=== PATIENT | female | born 1970 | race Two or more races ===

== ENCOUNTER 2017-02-20 09:46 | Inpatient (IN) | payer BC ==
--- NOTE | ~2017-02-20 | CT2 ---
[facility] A Service of [facility] RADIOLOGY TEXT RESULTS PATIENT: AKOSUA PATIÑO LOCATION: [place] [address] : [birth year] UNIT #: [id number] AGE: [address]: Stefan Whelan MD SEX: F ORDER DR: [id number] [place] [id number] [facility]. [place], [place] [address] [id number] I MR#: [id number] Acc #: [id number] NAME: AKOSUA PATIÑO : 1970 SEX: F STUDY DATE/TIME: 02/20/2017 14:06 UNIT: [facility] ROOM: [facility] STUDY DESCRIPTION: CT Abd and Pelv W Cont Attending Physician: Sidra Vang M.D. Ordering Physician: Nate Pete D.O. Primary Care Physician: Darrel Bello M.D. MEDICAL IMAGING REPORT This report is preliminary unless electronic signature is present EXAM CT abdomen and pelvis with contrast INDICATION Right upper quadrant pain for [address] of the abdomen and pelvis was performed following administration of IV contrast. Coronal and sagittal reformatted images are obtained. This CT exam was performed with one or more of the following radiation dose reduction techniques: automatic exposure control, adjustment of mA and/or kV according to patient size, and iterative reconstruction. No comparisons. FINDINGS Please refer to separately dictated chest CT for findings above the diaphragm. The liver, gallbladder and spleen are unremarkable. The kidneys are unremarkable. The adrenal glands are unremarkable. The pancreas is unremarkable. PELVIS: Hysterectomy. Urinary bladder is unremarkable. Colon is unremarkable. The appendix is normal. The bone windows are unremarkable. IMPRESSION No acute findings. No CT findings to explain the patient's symptoms. Dictated by... Albert Bravo M.D. [facility] A Service [facility] RADIOLOGY TEXT RESULTS PATIENT: AKOSUA PATIÑO LOCATION: [place] [address] : [birth year] UNIT #: [id number] AGE: [address]: Stefan Whelan MD SEX: F ORDER DR: THIS IS AN ELECTRONICALLY VERIFIED REPORT Albert Bravo M.D. at 02/21/2017 7:29 AM YISEL/ewelina TD: 02/21/2017 04:39 JOB #: [id number] MEDICAL IMAGING REPORT Page 1 of 1 COPY
--- NOTE | ~2017-02-20 | NM22 ---
[facility] A Service of [facility] RADIOLOGY TEXT RESULTS PATIENT: AKOSUA PATIÑO LOCATION: [place] [address] : [birth year] UNIT #: [id number] AGE: [address]: Stefan Whelan MD SEX: F ORDER DR: [id number] [place] [id number] [place], [place] [address] [id number] I MR#: [id number] Acc #: [id number] NAME: AKOSUA PATIÑO : 1970 SEX: F STUDY DATE/TIME: 02/21/2017 9:27 UNIT: [facility] ROOM: [facility] STUDY DESCRIPTION: NM Hepatobiliary W GB Pharm Attending Physician: Stefan Whelan M.D. Ordering Physician: Joby Chang M.D. Primary Care Physician: Darrel Bello M.D. MEDICAL IMAGING REPORT This report is preliminary unless electronic signature is present EXAM Hepatobiliary scan with Kinevac, 02/21/2017. CLINICAL HISTORY Right upper quadrant tenderness. Abnormal ultrasound demonstrating cholelithiasis. PROCEDURE Study performed with 5.39 mCi technetium 99m Choletec followed by 1.6 mcg Kinevac IV. FINDINGS There is prompt uptake of radiotracer by the liver, clearance from the blood pool excretion in the biliary tree and filling of the gallbladder. Following Kinevac administration, calculated gallbladder ejection fraction is 84%. IMPRESSION Normal HIDA scan and normal ejection fraction of 84%. Dictated by... Kumar Bauer M.D. THIS IS AN ELECTRONICALLY VERIFIED REPORT Kumar Bauer M.D. at 02/22/2017 10:26 AM TEV/arelisw TD: 02/21/2017 18:16 JOB #: [id number] [facility] A Service [facility][1] RADIOLOGY TEXT RESULTS PATIENT: AKOSUA PATIÑO LOCATION: [place] [address] : [birth year] UNIT #: [id number] AGE: [address]: Stefan Whelan MD SEX: F ORDER DR: MEDICAL IMAGING REPORT Page 1 of 1 COPY
--- NOTE | ~2017-02-20 | EKG ---
PATIENT: AKOSUA PATIÑO UNIT #: [id number] Ventricular Rate: 73 BPM Atrial Rate: 73 BPM P-R Interval: 126 ms QRS Duration: 86 ms Q-T Interval: 408 ms QTC Calculation(Bezet): 449 ms P Bomont: 55 degrees Calculated R Bomont: 43 degrees Calculated T Bomont: 37 degrees Diagnosis Line: Normal sinus rhythm with sinus arrhythmia Diagnosis Line: Normal ECG Diagnosis Line: No previous ECGs available Diagnosis Line: Confirmed by IKE RUELAS MD ([id number]) on Diagnosis Line: 02/21/2017 11:09:29 AM INTERPRETING MD: SURAJ FLORES
--- NOTE | ~2017-02-20 | CT16 ---
[facility] A Service of [facility] RADIOLOGY TEXT RESULTS PATIENT: AKOSUA PATIÑO LOCATION: [facility] [id number] : [birth year] UNIT #: [id number] AGE: [address]: Stefan Whelan MD SEX: F ORDER DR: [id number] [facility] [address] [facility]. [place], [place] [address] [id number] I MR#: [id number] Acc #: [id number] NAME: AKOSUA PATIÑO : 1970 SEX: F STUDY DATE/TIME: 02/20/2017 14:56 UNIT: [facility] ROOM: [facility] STUDY DESCRIPTION: CT Angio Chest for PE Attending Physician: Sidra Vang M.D. Ordering Physician: Nate Pete D.O. Primary Care Physician: Darrel Bello M.D. MEDICAL IMAGING REPORT This report is preliminary unless electronic signature is present EXAM CT chest with contrast PE protocol INDICATIONS Elevated D-dimer. Hypertension, smoking history, right upper quadrant pain and back pain for [address] scan of the chest was performed following the administration of IV contrast. Coronal and sagittal reformatted images were obtained. Pulmonary embolism protocol. No comparisons. This CT exam was performed with one or more of the following radiation dose reduction techniques: automatic exposure control, adjustment of mA and/or kV according to patient size, and iterative reconstruction. FINDINGS There is no evidence for pulmonary embolism. There is some hazy density in the anterior mediastinum. This is indeterminate and may represent some residual thymic tissue. No pleural effusion. There is some mild dependent atelectasis or scarring in the lungs. No airspace consolidation or suspicious pulmonary nodule. Please refer to separately dictated CT abdomen and pelvis for findings below the diaphragm. Bone windows show degenerative changes of the lower thoracic spine. IMPRESSION 1. No evidence of pulmonary embolism. 2. No acute findings in the chest. 3. There is some hazy density in the anterior mediastinum which is indeterminate and may represent some residual thymic tissue however, I would recommend a followup chest CT with contrast in 3-6 months to document stability of this finding, or this could be compared with STS. [facility] A Service of [facility] RADIOLOGY TEXT RESULTS PATIENT: AKOSUA PATIÑO LOCATION: [place] [address] : [birth year] UNIT #: [id number] AGE: [address]: Stefan Whelan MD SEX: F ORDER DR: any old chest CTs if available. Dictated by... Albert Bravo M.D. THIS IS AN ELECTRONICALLY VERIFIED REPORT Albert Bravo M.D. at 02/21/2017 7:30 AM YISEL/ewelina TD: 02/21/2017 05:19 JOB #: [id number] MEDICAL IMAGING REPORT Page 1 of 1 COPY
--- NOTE | ~2017-02-20 | DS ---
Unit #: [id number] #: [id number] Patient: AKOSUA PATIÑO [id number] [address] [address] [id number] I MR#: [id number] NAME: AKOSUA PATIÑO ROOM: [facility] Age: 46 Sex: F Admission Date: 02/20/2017 : 1970 Discharge Date: 02/23/2017 Attending Physician: Stefan Whelan M.D. Primary Care Physician: Darrel Bello M.D. DISCHARGE SUMMARY HISTORY AND HOSPITAL COURSE Ms. Patiño is a otherwise healthy 46-year-old [place] female who presented to the emergency room with nausea, vomiting and right upper quadrant pain. Evaluation revealed cholelithiasis. She was taken to the operating room by Dr. Ge, who did an uncomplicated laparoscopic cholecystectomy. Postoperatively she had no complications. She was hemodynamically stable, tolerating a regular diet and follow up labs were entirely within normal limits. DISCHARGE DISPOSITION/INSTRUCTIONS She will be discharged home today with instructions to undergo diet and activity as tolerated. She is to call [phone] for a follow up appointment in 7-10 days. She may shower and use a laxative as needed. Prescription for hydrocodone was left for postoperative pain control. The patient understood these instructions and will be discharged home in stable condition. Dictated by... Evaristo Plascencia M.D. RS/to TD: 02/23/2017 17:11 JOB #: [id number] DISCHARGE SUMMARY Page 1 of 1 X Evaristo Plascencia MD X DISCHARGE SUMMARY
--- NOTE | ~2017-02-20 | OR ---
Unit #: [id number] #: [id number] Patient: AKOSUA PATIÑO [id number] [address] [place], [place] [address] [id number] Nathanael MR#: [id number] NAME: AKOSUA PATIÑO ROOM: 467 Date of Procedure: 02/22/2017 Admission Date: 02/20/2017 Surgeon: Buster Ge III, M.D. : 1970 Attending Physician: Stefan Whelan M.D. Primary Care Physician: Darrel Bello M.D. OPERATIVE REPORT PREOPERATIVE DIAGNOSIS Symptomatic cholelithiasis. POSTOPERATIVE DIAGNOSIS Symptomatic cholelithiasis. PROCEDURE PERFORMED Laparoscopic cholecystectomy. IMPORT SPECIALIST Cosmo Sanders M.D. SPECIMENS Gallbladder to Pathology. COMPLICATIONS None apparent. ESTIMATED BLOOD LOSS Minimal. INDICATIONS FOR PROCEDURE This is a 46-year-old Jordanian lady who has gallstones and right upper quadrant pain. She is here today for laparoscopic cholecystectomy. DESCRIPTION OF PROCEDURE After consent was obtained, the patient was brought to the operating room and placed in the supine position. General anesthetic was administered and her abdomen was prepped and draped in standard surgical fashion. I made a 5-mm incision in the right upper quadrant. I used an Optiview to enter into the peritoneal cavity without any difficulty. CO2 pneumoperitoneum was then established. Next, a second 5-mm port was placed in the supraumbilical region and an 11-mm port was placed in the midepigastric region and a third 5-mm port was placed in the right lateral subcostal region. I began by retracting the gallbladder superiorly and laterally. She had few adhesions down to the neck of the gallbladder, which were easily taken down. I then dissected out the cystic duct and cystic artery and after these were carefully identified, I placed 2 clips proximally, one clip distally along both structures and then they were divided. The gallbladder was then taken down off the liver bed using the hook cautery. I extracted the gallbladder through the epigastric port site after dilating the fascia and enlarging the skin opening. I had Unit #: [id number] #: [id number] Patient: AKOSUA PATIÑO excellent hemostasis. All needle, sponge, and instrument counts were correct x2. I removed all the trocars and released the pneumoperitoneum. The incisions were all injected with 0.25% plain Marcaine. I did reapproximate the fascia at the epigastric port site with a neoClose device. I then reapproximated all the skin edges with interrupted 4-0 Vicryl subcuticular suture. Steri-Strips were then applied. The patient tolerated the procedure without any problems and returned to the recovery room in stable condition. Dictated by... Buster Ge III, M.D. VCL/davina TD: 02/23/2017 05:57 JOB #: [id number] CC: Darrel Bello M.D. OPERATIVE REPORT Page 1 of 1 X Buster Ge III, MD X PROCEDURE OPERATIVE NOTE
--- NOTE | ~2017-02-20 | CO ---
Unit #: [id number] #: [id number] Patient: AKOSUA PATIÑO [id number] [address] [address] [id number] I MR#: [id number] NAME: AKOSUA PATIÑO ROOM: 46 Age: 46 Sex: F Admission Date: 02/20/2017 : 1970 Attending Physician: Stefan Whelan M.D. Primary Care Physician: Darrel Bello M.D. Consultation Date: 02/21/2017 CONSULTATION REPORT HISTORY OF PRESENT ILLNESS Ms. Patiño is a 46-year-old female of [place] origin who is Hong Konger speaking and so the history and exam was done through the use of the manager electrical phone. She presented to the hospital with complaints of new onset right upper quadrant pain associated with nausea, but no vomiting. She has been taking significant amounts of Motrin recently due to headaches and body aches, but is not on any other medications. She denies any hematemesis or melena. CT scan of the abdomen and chest were generally unremarkable. Chest x-ray was unremarkable. HIDA scan has been ordered and is pending at this time. PAST MEDICAL HISTORY Total abdominal hysterectomy, x2, 5, para 5, hypertension, not currently on medications. Previous admission to [facility] due to depression and suicidal ideation. ALLERGIES No allergies to medication. MEDICATIONS Hvma-lut-jcnenec ibuprofen. FAMILY HISTORY She is unaware of any chronic or inheritable diseases. SOCIAL HISTORY She is a smoker, but denies use of alcohol or recreational drugs. 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 REVIEW OF SYSTEMS No fever, chills, or night sweats. No vomiting. No diarrhea. No weight loss. PHYSICAL EXAMINATION GENERAL: She is awake, alert, oriented, complains of right upper quadrant pain. VITAL SIGNS: Temperature is 98.1, pulse 80, respirations 18, blood pressure 121/77. HEENT: No scleral icterus. NECK: No carotid bruits. CARDIAC: Regular rhythm without murmur. LUNGS: Clear. ABDOMEN: Nondistended and soft. She guards in the right upper quadrant. There is no mass or rebound. Unit #: [id number] #: [id number] Patient: AKOSUA PATIÑO EXTREMITIES: No edema. NEUROLOGIC: Grossly intact. SKIN: No skin rashes. DIAGNOSTIC STUDIES LABORATORY RESULTS: Comprehensive metabolic panel is generally unremarkable. In particular liver chemistries are normal. Her troponin is slightly elevated at 0.05. TSH is normal at 4.23. D-dimer was 841. Hemoglobin 12.7, white count 12,100 with normal differential, platelets 215,000. Urinalysis is negative for infection. CARDIOVASCULAR STUDIES: EKG normal sinus rhythm with no ischemic changes. ASSESSMENT AND PLAN A 46-year-old female with right upper quadrant pain and nausea. HIDA scan is pending. I discussed with the patient the possibility that she could have acalculous cholecystitis and if she does then, she may need a laparoscopic cholecystectomy. However, we will also discuss that if her HIDA scan is normal that she should have upper endoscopy to rule out peptic ulcer disease or gastritis due to her use of nonsteroidal anti-inflammatory agents. The patient understands. We will await the results of her HIDA scan. Dictated by... Rupesh Ramsey/davina TD: 02/21/2017 08:28 JOB #: [id number] CONSULTATION REPORT Page 1 of 1 X Evaristo Plascencia MD CONSULTATION REPORT
--- NOTE | ~2017-02-20 | HP ---
Unit #: [id number] #: [id number] Patient: AKOSUA PATIÑO [id number] [address] [place], [place] [address] [id number] MR#: [id number] NAME: AKOSUA PATIÑO ROOM: Age: 46 Sex: F Admission Date: 02/20/2017 : 1970 Attending Physician: Nate Pete D.O. Primary Care Physician: Darrel Bello M.D. HISTORY AND PHYSICAL REASON FOR ADMISSION Abdominal pain. HISTORY OF PRESENT ILLNESS The patient is a 46-year-old Malaysian-speaking female originally from [place] who states that over the past 48-72 hours she has had fairly significant abdominal pain, as well as right upper quadrant discomfort. She associates some mild dyspepsia, as well as nausea, but no emesis episodes at home. She tells me that she has only been taking Motrin recently secondary to headaches, as well as body aches, but otherwise, she does not really take any home medications. She also denies any chest pain or difficulty with breathing. 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 She denies any recent sick contacts. No fevers, no chills, and no urinary or GI complaints with the exception of above. PAST MEDICAL HISTORY Hypertension. PAST SURGICAL HISTORY 1. Hysterectomy. 2. section. HOME MEDICATIONS Ibuprofen p.r.n. ALLERGIES No known drug allergies. SOCIAL HISTORY Positive tobacco use. Negative alcohol use. Patient denies illicit drug use. FAMILY HISTORY Reviewed and noncontributory or non-pertinent. REVIEW OF SYSTEMS Please see History of Present Illness. Twelve points otherwise negative except for those positive and noted in the History of Present Illness. PHYSICAL EXAMINATION VITAL SIGNS: Temperature 98.3, pulse 89, respiratory rate 16, and blood pressure 153/100. Unit #: [id number] #: [id number] Patient: AKOSUA PATIÑO GENERAL APPEARANCE: A 46-year-old female lying comfortably in no acute distress. HEAD: Atraumatic and normocephalic. EARS: Tympanic membranes do not reveal any erythema or injection. NECK: Supple. CARDIOVASCULAR: S1 and S2 without murmur. RESPIRATORY: Clear. GASTROINTESTINAL/ABDOMEN: Mild distention noted. Tender to palpation right upper quadrant. Wadsworth's sign positive. Tender to palpation epigastrium. LOWER EXTREMITIES: No evidence of any lower extremity edema and no calf tenderness. NEUROLOGIC: Alert and oriented x3. No evidence of any focal nerve deficits. PSYCHIATRIC: Patient demonstrates normal mood and affect and is cooperative throughout. ER COURSE The patient received morphine 4 mg IV x1 and Zofran 4 mg IV x1 and received a normal saline bolus. DIAGNOSTIC STUDIES INITIAL LABORATORY: Mildly elevated troponin of 0.05. Urinalysis negative. D-dimer elevated at 841. BMP unremarkable. Lipase unremarkable. Hepatic panel unremarkable. CBC shows a white count of 10.6 and hemoglobin 14.6. IMAGING: CTA chest, as well as CT abdomen and pelvis, currently pending at the time of this dictation. I do not have those results. INITIAL IMPRESSION 1. Abdominal pain. 2. Likely gastritis versus peptic ulcer disease. 3. Ongoing tobacco abuse. 4. History of hypertension. PLAN Admission to med/surg floor. Gastroenterology consultation. Ultrasound gallbladder. Symptom management, PPI therapy, Zofran, Ativan, and morphine p.r.n. Carafate suspension also to be initiated. Blood pressure control with Norvasc p.o. N.p.o. after midnight. Await CTA chest, as well as CT abdomen and pelvis results. Unlikely to be cardiac in etiology and troponin elevation seems nonspecific in origin. It seems more likely this is either gallbladder versus stomach/GI in origin. The plans have been reviewed with the patient via quiller tender in detail. She wishes to be a Full Code. She agrees to admission and plan as mentioned and stated above. Dictated by Rupesh Rawsl/brain TD: 02/20/2017 17:19 JOB #: [id number] Unit #: [id number] #: [id number] Patient: AKOSUA PATIÑO HISTORY AND PHYSICAL Page 1 of 1 X Sidra Vang MD HISTORY AND PHYSICAL
--- NOTE | ~2017-02-20 | CO ---
Unit #: [id number] #: [id number] Patient: AKOSUA PATIÑO [id number] [address] [address] [id number] I MR#: [id number] NAME: AKOSUA PATIÑO ROOM: 46 Age: 46 Sex: F Admission Date: 02/20/2017 : 1970 Attending Physician: Stefan Whelan M.D. Primary Care Physician: Darrel Bello M.D. Consultation Date: 02/20/2017 CONSULTATION REPORT PRIMARY CARE PHYSICIAN Darrel Bello M.D. REASON FOR CONSULTATION Right upper quadrant pain. HISTORY OF PRESENTING ILLNESS Ms. Patiño is a 46-year-old Gibraltarian-speaking female, presented with a 48 hour onset for cfmcxviy-bb-ajhspm right upper quadrant pain. She is significantly tender. She had significant nausea. No vomiting. She denies any fever. History is very sketchy because of the language issues. PAST MEDICAL HISTORY Significant for hypertension. She is status post hysterectomy and C-sections. MEDICATIONS At home, ibuprofen as needed. ALLERGIES None. SOCIAL HISTORY Nonsmoker. Nonalcoholic. No drug abuse. FAMILY HISTORY Noncontributory. REVIEW OF SYSTEMS A complete 10-point review of systems was done, which is unremarkable other than as mentioned above. PHYSICAL EXAMINATION VITAL SIGNS: Stable. Afebrile. GENERAL: No acute distress. HEENT: Pupils equal and reactive. Sclerae anicteric. Oral mucosa moist. NECK: No JVD. No lymphadenopathy. CHEST: Clear to auscultation bilaterally. CARDIOVASCULAR: Regular rate and rhythm. No murmurs. ABDOMEN: Significant tender. Positive Wadsworth's sign right upper quadrant. Minimal guarding. No rebound. EXTREMITIES: Without clubbing, cyanosis, or edema. NEUROLOGIC: Intact. SKIN: Warm and dry. Unit #: [id number] #: [id number] Patient: AKOSUA PATIÑO DIAGNOSTIC STUDIES IMAGING STUDIES: CT scan of abdomen and pelvis shows no acute disease. CT chest shows no evidence of any embolism. LABORATORY RESULTS: Elevated white count at 10,600. Hemoglobin normal. Chemistries are largely unremarkable. ASSESSMENT AND PLAN The patient's symptoms suggest possible acute cholecystitis. I will get a HIDA scan as well as an ultrasound for evaluation. If that is negative, we will consider upper endoscopy for further evaluation. In the meantime, we will keep her on Protonix and pain medications. I will cover her with broad-spectrum antibiotics also and have surgical consult. Thank you, Dr. Vang for this interesting consult. We will follow along. Dictated by... Rupesh Garber/davina TD: 02/20/2017 20:43 JOB #: [id number] CONSULTATION REPORT Page 1 of 1 X Joby Chang MD X CONSULTATION REPORT
--- NOTE | ~2017-02-20 | CR72 ---
[facility] A Service of [facility] RADIOLOGY TEXT RESULTS PATIENT: AKOSUA PATIÑO LOCATION: [place] [address]- : [birth year] UNIT #: [id number] AGE: [address]: Stefan Whelan MD SEX: F ORDER DR: [id number] [facility] [address] [facility] [place] [facility]. [place], [place] [address] [id number] I MR#: [id number] Acc #: [id number] NAME: AKOSUA PATIÑO : 1970 SEX: F STUDY DATE/TIME: UNIT: [facility] ROOM: [facility] STUDY DESCRIPTION: CR Chest Single View Portable Attending Physician: Sidra Vang M.D. Ordering Physician: Nate Pete D.O. Primary Care Physician: Darrel Bello M.D. MEDICAL IMAGING REPORT This report is preliminary unless electronic signature is present EXAM Chest portable 02/20/2017 1250 hours HISTORY 46-year-old woman complaining of right upper quadrant pain radiating to her back with chest pain for 3 days. History of hypertension. COMPARISON None FINDINGS Portable upright chest demonstrates normal cardiac, mediastinal and hilar contours. There are scattered calcified granulomata in the lungs. There is no acute pulmonary density, pleural effusion or pneumothorax. IMPRESSION Benign calcified granulomatous changes are present. There are no acute cardiopulmonary findings. Dictated by... Claudette Knox M.D. THIS IS AN ELECTRONICALLY VERIFIED REPORT Claudette Knox M.D. at 02/21/2017 9:29 AM ZOIE/nerissa TD: 02/20/2017 18:45 JOB #: [id number] MEDICAL IMAGING REPORT Page 1 of 1 COPY
--- NOTE | ~2017-02-20 | US67 ---
[facility] A Service of [facility] RADIOLOGY TEXT RESULTS PATIENT: AKOSUA PATIÑO LOCATION: [place] [id number] : [birth year] UNIT #: [id number] AGE: [address]: Stefan Whelan MD SEX: F ORDER DR: [id number] [facility] [address] [place], [place] [address] [id number] I MR#: [id number] Acc #: [id number] NAME: AKOSUA PATIÑO : 1970 SEX: F STUDY DATE/TIME: 02/21/2017 8:23 UNIT: [facility] ROOM: [facility] STUDY DESCRIPTION: US Gallbladder Attending Physician: Stefan Whelan M.D. Ordering Physician: Sidra Vang M.D. Primary Care Physician: Darrel Bello M.D. MEDICAL IMAGING REPORT This report is preliminary unless electronic signature is present EXAM Right upper quadrant ultrasound 02/21/1970 HISTORY Right upper quadrant pain for 3 days. FINDINGS Survey images of the pancreas are normal. Hepatic parenchymal echotexture is normal. There is no mass or intra or extrahepatic biliary ductal dilatation. Survey images of the right kidney are normal. There are small shadowing stones in the gallbladder but there is no wall thickening or pericholecystic fluid. Extrahepatic common duct is about 5 mm, upper limits of normal. IMPRESSION Cholelithiasis without convincing evidence of cholecystitis or biliary obstruction. No gallbladder wall thickening or intra or extrahepatic biliary ductal dilatation. Dictated by... Kumar Bauer M.D. THIS IS AN ELECTRONICALLY VERIFIED REPORT Kumar Bauer M.D. at 02/22/2017 10:25 AM OCTAVIA/lucita TD: 02/21/2017 15:12 JOB #: [id number] MEDICAL IMAGING REPORT [facility] A Service of [facility] RADIOLOGY TEXT RESULTS PATIENT: AKOSUA PATIÑO LOCATION: [place] [address] : [birth year] UNIT #: [id number] AGE: [address]: Stefan Whelan MD SEX: F ORDER DR: Page 1 of 1 COPY
[2017-02-20 10:30] LABS: BASOPHIL# 0.1 X10e3 (0-0.3); BASOPHIL% 1.2 % (0-2.5); EOSINOPHIL# 0.7 X10e3 (0-0.7); EOSINOPHIL% 6.6 % (0.0-7.0); HEMOGLOBIN 14.6 gm/dL (12.0-16.0); LYMPHOCYTE# 3.8 X10e3 (1.0-3.5); LYMPHOCYTE% 35.6 % (17.0-45.0); MEAN CELL VOLUME 88.5 FL (83-96); MEAN CORPUSCULAR HEMOGLOBIN 29.4 PG (28-34); MEAN CORPUSCULAR HGB CONC 33.2 g/dL (30-36); MONOCYTE# 0.6 X10e3 (0-1.0); MONOCYTE% 5.7 % (3.0-12.0); NEUTROPHIL# 5.4 X10e3 (1.5-7.1); NEUTROPHIL% 50.9 % (40-75); PLATELET COUNT 246 X10e3 (140-420); RED BLOOD COUNT 4.96 X10e (3.90-5.30); RED CELL DISTRIBUTION WIDTH 13.9 % (11.0-15.5); WHITE BLOOD COUNT 10.6 X10e3 (4.0-10.5)
[2017-02-20 10:36] LABS: DIFF IND NO
[2017-02-20 11:09] LABS: ALBUMIN SERUM 4.2 g/dL (3.5-5.0); BILIRUBIN, DIRECT 0.1 mg/dL (0.0-0.2); BILIRUBIN,INDIRECT 0.4 mg/dL (0.0-0.9); BILIRUBIN,TOTAL 0.5 mg/dL (0.2-2.0); BUN/CREATININE RATIO 21.66; CALCIUM SERUM 9.1 mg/dL (8.4-10.2); CREATININE SERUM 0.6 mg/dL (0.6-1.4); GLOM FILT RATE Estimated 108.5 mL/min (>60); POTASSIUM 4.2 mmol/L (3.5-5.1); PROTEIN TOTAL SERUM 7.9 g/dL (6.0-8.3)
[2017-02-20 13:37] LABS: URINE SOURCE CLEAN CATCH
[2017-02-20 13:43] LABS: URINE APPEARANCE CLEAR; URINE BILIRUBIN NEG (NEG); URINE BLOOD TRACE (NEG); URINE COLOR YELLOW; URINE GLUCOSE NEG (NEG); URINE KETONE NEG (NEG); URINE LEUKOCYTE ESTERASE NEG (NEG); URINE NITRATE NEG (NEG); URINE PROTEIN NEG (NEG); URINE SPECIFIC GRAVITY 1.009 (1.003-1.035); URINE UROBILINOGEN 0.2 MG/DL (NEG)
[2017-02-20 13:46] LABS: URINE BACTERIA AUWI NEG (NEGATIVE); URINE SQUAMOUS EPITHELIAL CELL NONE SEEN /[HPF]; UWBCS1 AUWI 0-2 (0-5)
[2017-02-20 13:48] LABS: CULTURE INDICATED? NO
[2017-02-20 22:08] LABS: %MB 2.1 % (0.0-4.0); MB 1.5 ng/ml
[2017-02-21 00:35] LABS: BASOPHIL# 0.1 X10e3 (0-0.3); BASOPHIL% 0.9 % (0-2.5); EOSINOPHIL# 0.9 X10e3 (0-0.7); EOSINOPHIL% 7.5 % (0.0-7.0); HEMATOCRIT 38.9 % (35.0-45.0); HEMOGLOBIN 12.7 gm/dL (12.0-16.0); LYMPHOCYTE% 41.2 % (17.0-45.0); MEAN CELL VOLUME 87.7 FL (83-96); MEAN CORPUSCULAR HEMOGLOBIN 28.7 PG (28-34); MEAN CORPUSCULAR HGB CONC 32.7 g/dL (30-36); MEAN PLATELET VOLUME 9.1 FL (6.5-11.5); MONOCYTE# 0.7 X10e3 (0-1.0); MONOCYTE% 6.1 % (3.0-12.0); NEUTROPHIL# 5.4 X10e3 (1.5-7.1); NEUTROPHIL% 44.3 % (40-75); PLATELET COUNT 215 X10e3 (140-420); RED BLOOD COUNT 4.44 X10e (3.90-5.30); RED CELL DISTRIBUTION WIDTH 13.8 % (11.0-15.5); WHITE BLOOD COUNT 12.1 X10e3 (4.0-10.5)
[2017-02-21 00:38] LABS: DIFF IND NO
[2017-02-21 01:21] LABS: ALBUMIN SERUM 3.4 g/dL (3.5-5.0); BILIRUBIN,TOTAL 0.5 mg/dL (0.2-2.0); BUN/CREATININE RATIO 16.66; CALCIUM SERUM 8.2 mg/dL (8.4-10.2); CREATININE SERUM 0.6 mg/dL (0.6-1.4); GLOM FILT RATE Estimated 108.5 mL/min (>60); PROTEIN TOTAL SERUM 6.4 g/dL (6.0-8.3)
[2017-02-21 01:41] LABS: %MB 2.1 % (0.0-4.0); MB 1.4 ng/ml
[2017-02-22 02:58] LABS: BASOPHIL# 0.1 X10e3 (0-0.3); BASOPHIL% 0.7 % (0-2.5); DIFF IND NO; EOSINOPHIL# 0.6 X10e3 (0-0.7); EOSINOPHIL% 5.8 % (0.0-7.0); HEMATOCRIT 36.5 % (35.0-45.0); HEMOGLOBIN 11.9 gm/dL (12.0-16.0); LYMPHOCYTE# 4.1 X10e3 (1.0-3.5); LYMPHOCYTE% 40.1 % (17.0-45.0); MEAN CELL VOLUME 87.9 FL (83-96); MEAN CORPUSCULAR HEMOGLOBIN 28.6 PG (28-34); MEAN CORPUSCULAR HGB CONC 32.6 g/dL (30-36); MONOCYTE# 0.6 X10e3 (0-1.0); MONOCYTE% 5.7 % (3.0-12.0); NEUTROPHIL# 4.9 X10e3 (1.5-7.1); NEUTROPHIL% 47.7 % (40-75); PLATELET COUNT 201 X10e3 (140-420); RED BLOOD COUNT 4.15 X10e (3.90-5.30); RED CELL DISTRIBUTION WIDTH 13.7 % (11.0-15.5); WHITE BLOOD COUNT 10.2 X10e3 (4.0-10.5)
[2017-02-22 03:39] LABS: CALCIUM SERUM 8.5 mg/dL (8.4-10.2); CREATININE SERUM 0.5 mg/dL (0.6-1.4); GLOM FILT RATE Estimated 115.3 mL/min (>60); POTASSIUM 3.9 mmol/L (3.5-5.1)
[2017-02-23 03:10] LABS: HEMATOCRIT 38.1 % (35.0-45.0); HEMOGLOBIN 12.4 gm/dL (12.0-16.0); MEAN CELL VOLUME 87.6 FL (83-96); MEAN CORPUSCULAR HEMOGLOBIN 28.5 PG (28-34); MEAN CORPUSCULAR HGB CONC 32.6 g/dL (30-36); MEAN PLATELET VOLUME 9.4 FL (6.5-11.5); RED BLOOD COUNT 4.35 X10e (3.90-5.30); RED CELL DISTRIBUTION WIDTH 13.6 % (11.0-15.5); WHITE BLOOD COUNT 10.4 X10e3 (4.0-10.5)
[2017-02-23 04:09] LABS: ALBUMIN SERUM 3.5 g/dL (3.5-5.0); BILIRUBIN,TOTAL 0.7 mg/dL (0.2-2.0); BUN/CREATININE RATIO 17.14; CALCIUM SERUM 8.8 mg/dL (8.4-10.2); CREATININE SERUM 0.7 mg/dL (0.6-1.4); GLOM FILT RATE Estimated 103.2 mL/min (>60); POTASSIUM 4.4 mmol/L (3.5-5.1); PROTEIN TOTAL SERUM 6.6 g/dL (6.0-8.3)
[2017-02-23 05:52] LABS: AMPHETAMINE NEG (NEG); BARBITURATES NEG (NEG); BENZODIAZEPINES POS (NEG); COCAINE NEG (NEG); MARIJUANA NEG (NEG); OPIATES POS (NEG); TRICYCLIC ANTIDEPRESSANTS NEG (NEG); U METHADONE NEG (NEG)
[2017-02-23] MEDS ORDERED: ACETAMINOPHEN650 M4 PO (07:46)
[2017-02-23] MEDS ORDERED: HYDROCODON-ACE1 EAC7 PO (07:47)
== END 2017-02-23 08:33 | disposition home or self-care (01) | DRG 419 ==
LOC: CED 09:46 → C4C 16:25 → CED 17:02 → C4C 17:02
PROVIDERS: Family Medicine; Internal Medicine; Surgery
PROC: 0FT44ZZ Resection of Gallbladder, Percutaneous Endoscopic Approach (ICD-10-PCS; principal; 2017-02-22 13:30)
DX: K80.10 Calculus of gallbladder with chronic cholecystitis without obstruction (principal); I10 Essential (primary) hypertension; Z90.710 Acquired absence of both cervix and uterus; Z72.0 Tobacco use; D64.9 Anemia, unspecified
CPT/HCPCS: 71010; 71275; 74177; 76705; 78227; 80048; 80053; 80076; 80307; 81003; 82550; 82553; 82947; 83690; 84443; 84484; 85025; 85027; 85379; 88304; 93005; 94760; 96361; 96374; 96375; 99285; A9537; C9113; J0131; J0295; J0330; J1100; J1200; J1885; J2250; J2270; J2405; J2710; J2805; J3010; Q9967

== ENCOUNTER 2017-03-16 10:10 | Emergency (ER) | payer BC ==
[~2017-03-16] VITALS: Ht 160 cm; Wt 77.1 kg
--- NOTE | ~2017-03-16 | CT71 ---
[facility] A Service of [facility] RADIOLOGY TEXT RESULTS PATIENT: AKOSUA PATIÑO LOCATION: [facility] : [birth year] UNIT #: [id number] AGE: [address]: Cristóbal Arroyo MD SEX: F ORDER DR: [id number] [facility] [address] [place], [place] [address] [id number] E MR#: [id number] Acc #: [id number] NAME: AKOSUA PATIÑO : 1970 SEX: F STUDY DATE/TIME: 03/16/2017 11:24 UNIT: [facility] ROOM: STUDY DESCRIPTION: CT Head Wo Contrast Attending Physician: Cristóbal Arroyo M.D. Ordering Physician: Cristóbal Arroyo M.D. Primary Care Physician: Darrel Bello M.D. MEDICAL IMAGING REPORT This report is preliminary unless electronic signature is present EXAM Head CT, 03/16 INDICATIONS Headache and right eye pain that started yesterday. COMPARISON None TECHNIQUE This CT exam was performed with one or more of the following radiation dose reduction techniques: automatic exposure control, adjustment of mA and/or kV according to patient size, and iterative reconstruction. FINDINGS Axial noncontrast images were obtained from the skull base to the vertex. Ventricular size and configuration are normal. There is no evidence of acute infarct or hemorrhage. There are no extra-axial fluid collections. No mass lesion or mass effect is seen. There are no skull fractures. IMPRESSION Normal noncontrast head CT. Dictated by... Evaristo Dewitt Jr., M.D. THIS IS AN ELECTRONICALLY VERIFIED REPORT Evaristo Dewitt Jr., M.D. at 03/16/2017 4:50 PM INDIO/melania TD: 03/16/2017 13:27 JOB #: [id number] [facility] A Service of [facility] RADIOLOGY TEXT RESULTS PATIENT: AKOSUA PATIÑO LOCATION: [facility] : [birth year] UNIT #: [id number] AGE: [address]: Cristóbal Arroyo MD SEX: F ORDER DR: MEDICAL IMAGING REPORT Page 1 of 1 COPY
--- NOTE | ~2017-03-16 | CT2 ---
[facility] A Service of [facility] RADIOLOGY TEXT RESULTS PATIENT: AKOSUA PATIÑO LOCATION: [facility] : [birth year] UNIT #: [id number] AGE: [address]: Cristóbal Arroyo MD SEX: F ORDER DR: [id number] [place] [id number] [place], [place] [address] [id number] E MR#: [id number] Acc #: [id number] NAME: AKOSUA PATIÑO : 1970 SEX: F STUDY DATE/TIME: 03/16/2017 12:43 UNIT: [facility] ROOM: STUDY DESCRIPTION: CT Abd and Pelv W Cont Attending Physician: Crsitóbal Arroyo M.D. Ordering Physician: Cristóbal Arroyo M.D. Primary Care Physician: Darrel Bello M.D. MEDICAL IMAGING REPORT This report is preliminary unless electronic signature is present EXAM CT abdomen and pelvis with contrast. HISTORY Mid abdominal pain for 2 days. COMPARISON 02/20/2017 TECHNIQUE The patient was given 100 mL of Isovue-370 and axial 5 mm images were obtained through the abdomen and pelvis. Sagittal and coronal reconstructions were generated. This CT exam was performed with one or more of the following radiation dose reduction techniques: automatic exposure control, adjustment of mA and/or kV according to patient size, and iterative reconstruction. FINDINGS Lung bases are clear. Gallbladder has been removed. The liver, spleen, pancreas, adrenal glands and kidneys are normal. The aorta is normal in size and there is no adenopathy. The bowel included the appendix appears normal. The bladder is normal. The uterus has been removed and there are no adnexal masses. The bones are unremarkable. IMPRESSION 1. Prior cholecystectomy and hysterectomy. 2. Otherwise, the study is normal. 3. The appendix is normal. [facility] A Service [facility] RADIOLOGY TEXT RESULTS PATIENT: AKOSUA PATIÑO LOCATION: [facility] : [birth year] UNIT #: [id number] AGE: [address]: Cristóbal Arroyo MD SEX: F ORDER DR: Dictated by... Ulises Huitron M.D. THIS IS AN ELECTRONICALLY VERIFIED REPORT Ulises Huitron M.D. at 03/16/2017 3:31 PM DANIEL/bree TD: 03/16/2017 15:09 JOB #: [id number] MEDICAL IMAGING REPORT Page 1 of 1 COPY
[~2017-03-16 10:10] MED LIST: ACETAMINOPHEN650 M4 PO; HYDROCODON-ACE1 EAC7 PO
[2017-03-16 10:51] LABS: BASOPHIL# 0.1 X10e3 (0-0.3); BASOPHIL% 0.5 % (0-2.5); EOSINOPHIL# 0.9 X10e3 (0-0.7); EOSINOPHIL% 7.8 % (0.0-7.0); HEMATOCRIT 43.6 % (35.0-45.0); HEMOGLOBIN 14.8 gm/dL (12.0-16.0); LYMPHOCYTE# 4.4 X10e3 (1.0-3.5); LYMPHOCYTE% 39.9 % (17.0-45.0); MEAN CORPUSCULAR HEMOGLOBIN 29.4 PG (28-34); MEAN CORPUSCULAR HGB CONC 33.8 g/dL (30-36); MEAN PLATELET VOLUME 9.1 FL (6.5-11.5); MONOCYTE# 0.6 X10e3 (0-1.0); NEUTROPHIL# 5.1 X10e3 (1.5-7.1); NEUTROPHIL% 46.8 % (40-75); PLATELET COUNT 290 X10e3 (140-420); RED BLOOD COUNT 5.01 X10e (3.90-5.30)
[2017-03-16 10:54] LABS: DIFF IND NO
[2017-03-16 11:03] LABS: INR 0.9
[2017-03-16 11:23] LABS: ALBUMIN SERUM 4.4 g/dL (3.5-5.0); BILIRUBIN, DIRECT 0.1 mg/dL (0.0-0.2); BILIRUBIN,INDIRECT 0.6 mg/dL (0.0-0.9); BILIRUBIN,TOTAL 0.7 mg/dL (0.2-2.0); BUN/CREATININE RATIO 17.14; CALCIUM SERUM 9.6 mg/dL (8.4-10.2); CREATININE SERUM 0.7 mg/dL (0.6-1.4); GLOM FILT RATE Estimated 103.2 mL/min (>60); POTASSIUM 4.1 mmol/L (3.5-5.1)
== END 2017-03-16 14:07 | disposition home or self-care (01) ==
LOC: CED 10:10
PROVIDERS: Emergency Medicine
DX: H11.31 Conjunctival hemorrhage, right eye (principal)
CPT/HCPCS: 36415; 70450; 74177; 80048; 80076; 83690; 85025; 85610; 96374; 96375; 99284; J2270; J2405; Q9967